=== PATIENT | female | born 2005 | race Caucasian/White ===

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

== ENCOUNTER 2024-06-19 00:07 | Inpatient (IN) | payer OTHER ==
[2024-06-19 18:10] LABS: BASOPHIL % 0.3 % (0.1-1.2); Basophil (Absolute #) 0.03 x10^3/uL (0.01-0.08); Eosinophil % 0.3 % (0.7-5.8); Eosinophil (Absolute #) 0.03 x10^3/uL (0.04-0.36); Hematocrit 33.1 % (34.1-44.9); Hemoglobin 11.3 g/dL (11.2-15.7); IMMATURE GRAN # 0.06 x10^3u/L (0.001-0.031); IMMATURE GRAN % 0.6 % (0.001-0.429); Lymphocyte (Absolute #) 1.85 x10^3/uL (1.18-3.74); Lymphocytes % 18.4 % (19.3-51.7); Mean Cell Volume 85.3 fL (79.4-94.8); Mean Corpuscular Hemoglobin 29.1 pg (25.6-32.2); Mean Corpuscular Hgb Concent. 34.1 g/dL (32.2-35.5); Monocyte (Absolute #) 0.76 x10^3/uL (0.24-0.86); Monocytes % 7.6 % (4.7-12.5); Neutrophil % 72.8 % (34.0-71.1); Platelet Count 184 x10^3/uL (182-369); Red Blood Count 3.88 x10^6/uL (3.93-5.22); Red Cell Distribution Width 14.4 % (11.7-14.4)
[2024-06-19] MEDS: CYTOTEC PO SCH (18:15)
[2024-06-19 18:29] LABS: Amphetamine,Urine NEGATIVE (NEGATIVE); Barbiturate,Urine NEGATIVE (NEGATIVE); Benzodiazepine,Urine NEGATIVE (NEGATIVE); Cocaine,Urine NEGATIVE (NEGATIVE); Methadone,Urine NEGATIVE (NEGATIVE); Opiate,Urine NEGATIVE (NEGATIVE); PCP,Urine NEGATIVE (NEGATIVE); THC,Urine NEGATIVE (NEGATIVE)
[2024-06-19 18:59] LABS: ABO TYPING A; Antibody Screen NEGATIVE (NEGATIVE); RH TYPING POSITIVE
[2024-06-20] MEDS: Lactated Ringers 1,000 ML IV SCH (06:10)
[2024-06-20] MEDS: PITOCIN 30 UNITS/ LR 500 ML 30 UNITS/500 ML PLAST..BAG IV SCH (06:10)
[2024-06-20] MEDS: Lactated Ringers 1,000 ML IV ONE (07:35)
[2024-06-20] MEDS: FENTANYL 2 MCG-BUPIV 0.125%-NS 250 ML Epidur 250 ML EPIDURAL SCH (07:35)
[2024-06-20] MEDS ORDERED: Ephedrine Sulfate 50 MG/ML IV PRN (08:00)
[2024-06-20] MEDS: Zofran 4 MG/2 ML VIAL IV PRN (09:01)
[2024-06-20 10:21] LABS: Appearance Clear (Clear); Bacteria None Seen /HPF (None Seen); Bilirubin Negative (Negative); Blood Negative (Negative); Epithelial Cells None Seen /HPF (None Seen); Glucose, Urine Negative (Negative); Hyaline Casts NONE SEEN /LPF (0-2); Ketones Negative (Negative); Leukocyte Esterase Negative (Negative); Nitrite Negative (Negative); Protein,Urine Dip Negative (Negative); RBC 0-2 /HPF (0-5); WBC 0-2 /HPF (0-5)
[2024-06-20] MEDS ORDERED: XYLOCAINE 1% HCL 20 ML MDV IJ PRN (12:21)
[2024-06-20] MEDS: TUCKS TP PRN (14:44)
[2024-06-20] MEDS: Dermoplast Spray TP PRN (14:44)
[2024-06-20] MEDS: LANSINOH 40 GM TOP PRN (14:45)
[2024-06-20] MEDS: TYLENOL EXTRA STRENGTH 500 MG PO PRN (20:40)
[2024-06-20] MEDS: Docusate Sodium 100 MG PO SCH (20:40)
[2024-06-21 05:38] LABS: Absolute Neutrophil Ct (ANC) 10.32 x10^3/uL (1.56-6.13); BASOPHIL % 0.2 % (0.1-1.2); Basophil (Absolute #) 0.03 x10^3/uL (0.01-0.08); Eosinophil % 0.2 % (0.7-5.8); Eosinophil (Absolute #) 0.03 x10^3/uL (0.04-0.36); Hematocrit 30.4 % (34.1-44.9); Hemoglobin 10.1 g/dL (11.2-15.7); IMMATURE GRAN # 0.08 x10^3u/L (0.001-0.031); IMMATURE GRAN % 0.6 % (0.001-0.429); Lymphocyte (Absolute #) 3.06 x10^3/uL (1.18-3.74); Lymphocytes % 21.2 % (19.3-51.7); Mean Cell Volume 87.1 fL (79.4-94.8); Mean Corpuscular Hemoglobin 28.9 pg (25.6-32.2); Mean Corpuscular Hgb Concent. 33.2 g/dL (32.2-35.5); Monocyte (Absolute #) 0.93 x10^3/uL (0.24-0.86); Monocytes % 6.4 % (4.7-12.5); Neutrophil % 71.4 % (34.0-71.1); Platelet Count 188 x10^3/uL (182-369); Red Blood Count 3.49 x10^6/uL (3.93-5.22); Red Cell Distribution Width 14.6 % (11.7-14.4); White Blood Count 14.5 x10^3/uL (3.98-10.04)
[2024-06-21] MEDS: MOTRIN 400 MG PO PRN (06:12)
[2024-06-21 10:30] LABS: RPR Non Reactive (Non Reactive)
[2024-06-21] MEDS: FERREX 150 PO SCH (11:52)
[2024-06-22 06:10] VITALS: TEMP 97.9
[2024-06-22 10:28] VITALS: BP 117/63; PULSE 78; RESP 14; O2SAT 98
--- NOTE | 2024-06-22 11:45 | PCM.DS ---
Discharge Summary Date of Admission: 06/20/24 07:42 Admitting Physician: MATILDE LUCIO Consults: Consults on Case 06/20/24 08:00 Notify Anesthesia Provider PRN 06/20/24 16:53 Navigation ONCE Primary Care Provider: NATALEE VARGAS Allergies Allergies No Known Drug Allergies Allergy (Verified 06/19/24 18:11) Hospital Summary - Hospital Course Hospital Course: had uncomplicated vaginal delivery at 38wks, no problems or concerns - Vitals & Intake/Output Vital Signs: Vital Signs Temperature 97.9 F 06/22/24 10:00 Pulse Rate 78 06/22/24 10:00 Respiratory Rate 14 06/22/24 10:00 Blood Pressure 117/63 06/22/24 10:00 O2 Sat by Pulse Oximetry 98 06/22/24 10:00 Intake & Output: Intake & Output 06/19/24 06/20/24 06/21/24 06/22/24 11:59 11:59 11:59 11:59 Intake Total 500 Output Total 400 Balance -400 500 Weight 68.039 kg - Lab Result Diagrams: 06/21/24 05:03 Micro Results-Entire Visit: Microbiology 06/20/24 09:30 Urine Culture - Final Catherized NO GROWTH - Procedures and Test Procedures and Tests throughout Hospitalization: Therapy Orders & Screens 06/20/24 12:31 Standby ROUTINE Comment: Diagnosis: IUP Discharge Exam General Appearance: no apparent distress Neurologic Exam: alert, oriented x 3 Respiratory Exam: normal breath sounds, lungs clear, No respiratory distress Cardiovascular Exam: regular rate/rhythm, normal heart sounds Gastrointestinal/Abdomen Exam: soft, No tenderness, No mass Skin Exam: normal color, warm, dry Final Diagnosis/Problem List - Final Discharge Diagnosis/Problem (1) Normal vaginal delivery Current Visit: Yes Status: Acute Code(s): O80 - ENCOUNTER FOR FULL-TERM UNCOMPLICATED DELIVERY - Discharge Disposition: Home, Self-Care Condition: Stable Prescriptions: Continue Sertraline HCl 50 mg [Zoloft 50 mg Tablet] 100 mg PO DAILY Vit No.179/Iron/Folic [ Tablet] 1 each PO DAILY Additional Instructions: PLEASE RETURN TO THE OB UNIT AT THE HOSPITAL ON June FOR A FOLLOW UP ON BOTH MOM AND BABY. PLEASE CALL TO SCHEDULE A FOLLOW UP APPOINTMENT WITH DR LUCIO. PLEASE DO NOT HESITATE TO CALL WITH ANY QUESTIONS OR CONCERNS OR GO TO YOUR NEAREST EMERGENCY ROOM. Follow up with: MATILDE LUCIO MD [ACTIVE STAFF] - 6 weeks Forms: OB Discharge Instructions
[2024-06-22] MEDS: Adacel Vial IM ONE (12:03)
== END 2024-06-22 13:30 | disposition home or self-care (01) | DRG 807 ==
LOC: OB 07:42 → OBSVTOIN 06-20 07:42
PROVIDERS: ADMIT Family Medicine; ATTEND Family Medicine
PROC: 10E0XZZ Delivery of Products of Conception, External Approach (ICD-10-PCS; principal; 2024-06-20)
DX: O80 Encounter for full-term uncomplicated delivery (principal); Z37.0 Single live birth; Z3A.38 38 weeks gestation of pregnancy
CPT/HCPCS: 36415; 80307; 81001; 85025; 86592; 86850; 86900; 86901; 87086; 90471; 90715; 94799; G0378; G0379; J2405; J2590; A9270-GY